=== PATIENT | female | born 1965 | race Caucasian/White ===

== ENCOUNTER → 2017-01-16 | Outpatient (CLI) | payer MEDICAID ==
[~2017-01-16] MED LIST: ASPI-496 PO; ASPI-573 PO; CALC1TAB PO; ESOM40CA PO; IRON1TAB60 PO; MECL25TA4 PO; METF500T4 PO; METO25TA35 PO; METO25TA91 PO; PANT40TA5 PO; PSYL0.528 PO; ROPI1TAB PO; VITA400C43 PO
== END | disposition home or self-care (01) ==
LOC: RAD 08:26
PROVIDERS: ATTEND Family Medicine
DX: M50.323 Other cervical disc degeneration at C6-C7 level (principal); M43.12 Spondylolisthesis, cervical region; M48.02 Spinal stenosis, cervical region; M25.78 Osteophyte, vertebrae
CPT/HCPCS: 72050

== ENCOUNTER → 2017-02-18 | Outpatient (CLI) | payer MEDICAID | LOC: CFH 15:37 | PROVIDERS: ATTEND Family Medicine | DX: Z12.31 Encounter for screening mammogram for malignant neoplasm of breast (principal) | CPT/HCPCS: G0202 ==

== ENCOUNTER → 2017-10-09 | Outpatient (CLI) | payer MEDICAID ==
[~2017-10-09] MED LIST changes: +ASCO1CAP2 PO; +CALC1CAP8 PO; +CALC625T57 PO; +FERR-51 PO; +GLUC-149 PO; +LACT1CAP35 PO; +amberen PO
== END | disposition home or self-care (01) ==
LOC: STAR 16:13
PROVIDERS: ATTEND Obstetrics & Gynecology Female Pelvic Medicine and Reconstructive Surgery
DX: Z01.818 Encounter for other preprocedural examination (principal); N81.10 Cystocele, unspecified; N81.6 Rectocele; N39.3 Stress incontinence (female) (male)
CPT/HCPCS: 93005

== ENCOUNTER 2017-10-13 13:23 | Day surgery (SDC) | payer MEDICAID ==
[~2017-10-13] VITALS: Ht 160 cm; Wt 69.1 kg
[~2017-10-13 13:23] MED LIST changes: +BUPIVACAINE/PF 0.25% ONE; +EPINEPHRINE 1 MG/ML, 1ML ONE; +NEOMY/POLYMYXIN B GU IRR. 1 ML IRRIG ONE
[2017-10-13] MEDS ORDERED: LACTATED RINGERS 1,000 ML IV SCH (13:57)
[2017-10-13 14:03] VITALS: BP 124/82
[2017-10-13] MEDS ORDERED: OXYcodone 5 MG/5 ML ORAL.SOL UDC PO PRN ×2 (14:30→16:30)
[2017-10-13] MEDS ORDERED: HYDROmorphone 1 MG/ML, 1ML IV PRN (14:30)
[2017-10-13] MEDS ORDERED: MIDAZOLAM 1 MG/ML, 2ML IV PRN ×2 (14:30→16:30)
[2017-10-13] MEDS ORDERED: LABETALOL 5MG/ML, 20ML IV PRN (14:30)
[2017-10-13] MEDS ORDERED: MEPERIDINE/PF 25MG/0.5ML IVPush PRN ×2 (14:30→16:30)
[2017-10-13] MEDS ORDERED: DEXTROSE 50%, 50ML SYRINGE IVPush PRN (14:30)
[2017-10-13] MEDS ORDERED: FENTANYL PF 100 MCG/2ML IV PRN ×2 (14:30→16:30)
[2017-10-13] MEDS ORDERED: ONDANSETRON 2MG/ML, 2ML IVPush PRN (14:30)
[2017-10-13] MEDS ORDERED: DEXTROSE 50%, 50ML SYRINGE ONE (14:31)
[2017-10-13] MEDS ORDERED: MIDAZOLAM 1 MG/ML, 2ML ONE (15:57)
[2017-10-13] MEDS ORDERED: FENTANYL PF 250 MCG/5ML ONE (15:58)
[2017-10-13] MEDS ORDERED: CEFAZOLIN 1,000 MG ONE (16:01)
[2017-10-13] MEDS ORDERED: PROPOFOL 10 MG/ML, 20ML ONE ×2 (16:08)
[2017-10-13] MEDS ORDERED: DEXAMETHASONE 4 MG/ML, 1ML ONE (16:09)
[2017-10-13] MEDS ORDERED: ONDANSETRON 2MG/ML, 2ML ONE (16:09)
[2017-10-13] MEDS ORDERED: ONDANSETRON ODT 8 MG PO PRN (16:30)
[2017-10-13] MEDS ORDERED: DIPHENHYDRAMINE 50 MG/ML, 1ML IVPush PRN (16:30)
[2017-10-13] MEDS ORDERED: MORPHINE SULFATE 4 MG/ML, 1ML IVPush PRN (16:30)
[2017-10-13] MEDS ORDERED: PROMETHAZINE 12.5 MG SUPP PR PRN (16:30)
[2017-10-13] MEDS ORDERED: EPHEDRINE 50 MG/ML, 1ML IM PRN (16:30)
[2017-10-13] MEDS ORDERED: PROMETHAZINE 25 MG/ML, 1ML IV PRN (16:30)
[2017-10-13] MEDS ORDERED: ACETAMINOPHEN 325 MG TABLET PO PRN (16:30)
[2017-10-13] MEDS ORDERED: FUROSEMIDE 20 MG/2 ML ONE (16:57)
[2017-10-13] MEDS ORDERED: KETOROLAC 30 MG/1 ML ONE (17:30)
[2017-10-13] MEDS ORDERED: OXYcodone 5 MG/5 ML ORAL.SOL UDC ONE (17:30)
== END 2017-10-13 18:55 | disposition home or self-care (01) ==
LOC: OUT 13:23
PROVIDERS: ATTEND Obstetrics & Gynecology Female Pelvic Medicine and Reconstructive Surgery
DX: N94.10 Unspecified dyspareunia (principal); N39.46 Mixed incontinence; N81.89 Other female genital prolapse; E11.9 Type 2 diabetes mellitus without complications; K21.9 Gastro-esophageal reflux disease without esophagitis; Z90.710 Acquired absence of both cervix and uterus; Z98.890 Other specified postprocedural states; Z72.89 Other problems related to lifestyle
CPT/HCPCS: 57265; 57282; 57288; 82962; C1771; J0171; J0690; J1100; J1940; J2250; J2405; J2704; J3010; J3490; J7120

== ENCOUNTER 2018-08-24 05:30 | Day surgery (SDC) | payer BC ==
[2018-08-17 15:24] VITALS: BP 120/87
[~2018-08-24] VITALS: Ht 160 cm; Wt 71.6 kg
[~2018-08-24 05:30] MED LIST changes: -BUPIVACAINE/PF 0.25% ONE; -EPINEPHRINE 1 MG/ML, 1ML ONE; +METF500T17 PO; -METF500T4 PO; -NEOMY/POLYMYXIN B GU IRR. 1 ML IRRIG ONE; +OMEG1CAP6 PO; +OMEGA 3 PO
[2018-08-24] MEDS ORDERED: LACTATED RINGERS 1,000 ML IV SCH (06:13)
[2018-08-24 06:18] VITALS: BP 120/87
[2018-08-24] MEDS ORDERED: BUPIVACAINE/PF 0.25% ONE (06:47)
[2018-08-24] MEDS ORDERED: EPINEPHRINE 1 MG/ML, 1ML ONE (06:48)
[2018-08-24] MEDS ORDERED: NEOMY/POLYMYXIN B GU IRR. 1 ML ONE (06:48)
[2018-08-24] MEDS ORDERED: FENTANYL PF 250 MCG/5ML ONE (07:07)
[2018-08-24] MEDS ORDERED: MIDAZOLAM 1 MG/ML, 2ML ONE (07:07)
[2018-08-24] MEDS ORDERED: PROPOFOL 10 MG/ML, 20ML ONE (07:08)
[2018-08-24] MEDS ORDERED: ROCURONIUM 10MG/ML,5ML ONE (07:08)
[2018-08-24] MEDS ORDERED: LIDOCAINE-MPF 2% ,5ML ONE (07:08)
[2018-08-24] MEDS ORDERED: SCOPOLAMINE PATCH, 1.5MG PATCH.TD72 TD ONE ×2 (07:12)
[2018-08-24] MEDS ORDERED: GABAPENTIN 300 MG CAPSULE ONE ×2 (07:12)
[2018-08-24] MEDS ORDERED: DEXAMETHASONE 4 MG/ML, 1ML ONE (07:29)
[2018-08-24] MEDS ORDERED: ONDANSETRON 2MG/ML, 2ML ONE (07:29)
[2018-08-24] MEDS ORDERED: OXYcodone 5 MG/5 ML ORAL.SOL UDC PO PRN (08:00)
[2018-08-24] MEDS ORDERED: hydrALAzine 20 MG/ML, 1ML IV PRN (08:00)
[2018-08-24] MEDS ORDERED: HYDROmorphone 2 MG/ML, 1ML IVPush PRN (08:00)
[2018-08-24] MEDS ORDERED: ALBUTEROL/IPRATROPIUM 2.5MG/0.5MG, 3 ML NPPB PRN (08:00)
[2018-08-24] MEDS ORDERED: DIAZEPAM 5 MG/ML, 2ML IVPush PRN (08:00)
[2018-08-24] MEDS ORDERED: HALOPERIDOL 5 MG/ML IV PRN (08:00)
[2018-08-24] MEDS ORDERED: MEPERIDINE/PF 25MG/0.5ML IVPush PRN (08:00)
[2018-08-24] MEDS ORDERED: PROMETHAZINE 25 MG/ML, 1ML IV PRN (08:00)
[2018-08-24] MEDS ORDERED: ACETAMINOPHEN 325 MG TABLET PO PRN (08:00)
[2018-08-24] MEDS ORDERED: NEOSTIGMINE 1 MG/ML, 10ML ONE (08:10)
[2018-08-24] MEDS ORDERED: GLYCOPYRROLATE 0.4 MG/2 ML, 2ML ONE (08:10)
[2018-08-24] MEDS ORDERED: ACETAMINOPHEN 650 MG/20.3 ML UDC ONE (08:45)
[2018-08-24] MEDS ORDERED: OXYcodone 5 MG/5 ML ORAL.SOL UDC ONE (08:46)
[2018-08-24] MEDS ORDERED: FENTANYL PF 100 MCG/2ML ONE (08:46)
[2018-08-24] MEDS: FENTANYL PF 100 MCG/2ML IV PRN ×2 (08:51→09:27)
== END 2018-08-24 11:25 | disposition home or self-care (01) ==
LOC: OUT 05:30
PROVIDERS: ATTEND Obstetrics & Gynecology Female Pelvic Medicine and Reconstructive Surgery
DX: N81.89 Other female genital prolapse (principal); N94.10 Unspecified dyspareunia; N39.46 Mixed incontinence; N81.6 Rectocele; N32.81 Overactive bladder; E11.9 Type 2 diabetes mellitus without complications; K21.9 Gastro-esophageal reflux disease without esophagitis; Z79.84 Long term (current) use of oral hypoglycemic drugs; Z90.710 Acquired absence of both cervix and uterus; Z98.890 Other specified postprocedural states
CPT/HCPCS: 57265; 57282; 57288; C1781; J0171; J1100; J2250; J2405; J2704; J2710; J3010; J3490; J7120

== ENCOUNTER 2019-05-11 16:08 | Outpatient (CLI) | payer BC, OTHER ==
[~2019-05-11 16:08] MED LIST changes: +MECL-101 PO; -MECL25TA4 PO
== END 2019-05-11 23:59 | disposition home or self-care (01) ==
LOC: CFH 16:08
PROVIDERS: ATTEND Family Medicine
DX: Z12.31 Encounter for screening mammogram for malignant neoplasm of breast (principal)
CPT/HCPCS: 77067

== ENCOUNTER → 2020-07-20 | Outpatient (CLI) | payer OTHER, MEDICAID ==
[~2020-07-20] MED LIST changes: +ALPR1TAB2 PO; -PANT40TA5 PO; +PANT40TA6 PO
== END | disposition home or self-care (01) ==
LOC: CFH 15:00 → EDSTATUS 15:45
PROVIDERS: ATTEND Orthopaedic Surgery Adult Reconstructive Orthopaedic Surgery
DX: M76.01 Gluteal tendinitis, right hip (principal); K57.30 Diverticulosis of large intestine without perforation or abscess without bleeding; M51.36 Other intervertebral disc degeneration, lumbar region

== ENCOUNTER 2020-12-27 11:18 | Emergency (ER) | payer MEDICAID ==
[~2020-12-27] VITALS: Ht 160 cm; Wt 67.3 kg
[~2020-12-27 11:18] MED LIST changes: +MELO15TA24 PO; +MIRA50TA PO; +OXYB5TAB10 PO; +SIMV10TA18 PO; +[UNRECOGNIZED DRUG - OTHER] PO
--- NOTE | 2020-12-27 12:30 | NUR ---
PIV PLACED. LABS AND 2 SETS BLOOD CX COLLECTED. PT CONNECTED TO ALL MONITORING. CALL LIGHT IN REACH.
--- NOTE | 2020-12-27 12:54 | NUR ---
REPORT GIVEN TO SHERIDAN MARY. TRANSFER OF CARE.
[2020-12-27 13:06] LABS: BASOPHILS % (AUTO) 0 % (0-1); EOSINOPHILS % (AUTO) 0 % (1-7); LYMPHOCYTES % (AUTO) 30 % (22-44); MEAN CORPUSCULAR HEMOGLOBIN 30.6 pg (27.0-34.8); MEAN CORPUSCULAR HGB CONC 35.4 g/dL (32.4-35.8); MEAN PLATELET VOLUME 8.8 fL (7.4-10.4); MONOCYTES % (AUTO) 7 % (2-9); NEUTROPHILS % (AUTO) 63 % (42-75); PLATELET COUNT 192 x10^3/uL (130-400); RED BLOOD COUNT 4.96 x10^6/uL (3.82-5.3)
[2020-12-27 13:17] LABS: ALBUMIN 3.5 g/dL (3.4-5.0); ANION GAP 8 mmol/L (5-15); CALCIUM 8.8 mg/dL (8.5-10.1); CHLORIDE 111 mmol/L (98-107)
[2020-12-27 13:22] LABS: CREATININE 0.58 mg/dL (0.55-1.02)
[2020-12-27 13:23] LABS: ALANINE AMINOTRANSFERASE 22 U/L (12-78); ALKALINE PHOSPHATASE 81 U/L (45-117); BILIRUBIN,TOTAL 0.5 mg/dL (0.2-1.0); TOTAL PROTEIN 6.9 g/dL (6.4-8.2); TROPONIN I < 0.015 ng/mL (0.000-0.045)
[2020-12-27] MEDS ORDERED: CASIRIVIMAB 600 MG, IMDEVIMAB (REGN10987) 600 MG in SODIUM CHLORIDE 0.9% 250 ML IVPB ONE (14:00)
[2020-12-27] MEDS ORDERED: FILTER 0.22 MICRON IV ONE (14:00)
[2020-12-27 16:52] VITALS: BP 108/72
== END 2020-12-27 17:07 | disposition home or self-care (01) ==
LOC: ED 11:20
DX: U07.1 COVID-19 (principal); J06.9 Acute upper respiratory infection, unspecified; J40 Bronchitis, not specified as acute or chronic; R00.0 Tachycardia, unspecified; K21.9 Gastro-esophageal reflux disease without esophagitis; I10 Essential (primary) hypertension; Z90.89 Acquired absence of other organs; Z90.710 Acquired absence of both cervix and uterus; Z87.891 Personal history of nicotine dependence; Z86.73 Personal history of transient ischemic attack (TIA), and cerebral infarction without residual deficits
CPT/HCPCS: 36415; 71045; 80053; 83605; 84145; 84484; 85025; 87040; 93005; 99285; M0243; 96365; 99283

== ENCOUNTER 2021-01-10 09:26 | Outpatient (CLI) | payer MEDICAID | END 2021-01-10 23:59 | disposition home or self-care (01) | LOC: ROC 09:26 | PROVIDERS: ATTEND Radiology Radiation Oncology | DX: D33.3 Benign neoplasm of cranial nerves (principal); E78.5 Hyperlipidemia, unspecified; Z90.710 Acquired absence of both cervix and uterus; Z79.01 Long term (current) use of anticoagulants; Z79.891 Long term (current) use of opiate analgesic; Z79.899 Other long term (current) drug therapy; Z87.891 Personal history of nicotine dependence | CPT/HCPCS: 99214; G0463 ==